=== PATIENT | female | born 1955 | race Caucasian/White ===

== ENCOUNTER 2017-03-19 07:53 | Day surgery (SDC) | payer OTHER ==
[2017-03-15 14:00] VITALS: BMI 26.7
[2017-03-19] MEDS ORDERED: PROPOFOL 20 ML ONE ×2 (08:44)
[2017-03-19 09:40] VITALS: TEMP 97.8
[2017-03-19 12:09] VITALS: BP 115/63; PULSE 59
--- NOTE | 2017-03-20 13:49 | PATH ---
Surgical Pathology Report Patient Name: TAMAR HINKLE [facility]. Rec. #: [id number] /Age/Gender: 1955 (Age: 61) / F Account: [id number] Location: U-ENDOSCOPY Taken: 03/19/2017 Received: 03/19/2017 Reported: 03/20/2017 Physicians: Timmy Casillas M.D. Specimen(s) Received BX TRANSVERSE COLON POLYP Clinical History History of colon polyp Final Diagnosis COLON, TRANSVERSE, POLYP, BIOPSY: CONSISTENT WITH INFLAMMATORY/POSTINFLAMMATORY TYPE POLYP. MELANOSIS COLI. Electronically Signed Mark Maravilla M.D. Gross Description Received in formalin, labeled "biopsy transverse colon polyp" is a 0.3 cm fragment of simpson-pink tissue. Submitted entirely in one cassette. AF/03/19/2017 final/03/19/2017
== END 2017-03-19 10:45 | disposition home or self-care (01) ==
LOC: JASU-ENDO 07:53
PROVIDERS: ATTEND Internal Medicine Gastroenterology
PROC: 0DBL8ZX Excision of Transverse Colon, Via Natural or Artificial Opening Endoscopic, Diagnostic (ICD-10-PCS; principal; 2017-03-19 09:00)
DX: Z12.11 Encounter for screening for malignant neoplasm of colon (principal); Z86.010 Personal history of colon polyps; D12.3 Benign neoplasm of transverse colon; K57.30 Diverticulosis of large intestine without perforation or abscess without bleeding; K64.8 Other hemorrhoids; K63.89 Other specified diseases of intestine
CPT/HCPCS: 88305-TC

== ENCOUNTER 2023-11-15 04:59 | Day surgery (SDC) | payer OTHER ==
[2023-11-14 10:46] VITALS: BMI 28.5
[2023-11-15 12:29] VITALS: TEMP 98.6
[2023-11-15 12:59] VITALS: RESP 16
[2023-11-15 13:00] VITALS: BP 116/60; PULSE 60
== END 2023-11-15 13:57 | disposition home or self-care (01) ==
LOC: JASU-ENDO 04:59
PROVIDERS: ATTEND Internal Medicine Gastroenterology
PROC: 0DBK8ZX Excision of Ascending Colon, Via Natural or Artificial Opening Endoscopic, Diagnostic (ICD-10-PCS; principal; 2023-11-15 12:00)
DX: Z12.11 Encounter for screening for malignant neoplasm of colon (principal); D12.2 Benign neoplasm of ascending colon; K57.30 Diverticulosis of large intestine without perforation or abscess without bleeding; Z83.719 Family history of colon polyps, unspecified
CPT/HCPCS: 88305-TC